=== PATIENT | male | born 1960 | race Caucasian/White ===

== ENCOUNTER 2018-04-25 09:53 | Emergency (ER) | payer BC, OTHER ==
[2018-04-25 11:32] LABS: Appearance,Urine Clear (Clear); Bilirubin,Urine Negative (Negative); Blood,Urine Negative (Negative); Color,Urine Yellow; Glucose,Urine (UA) Negative (Negative); Ketones,Urine Negative (Negative); Leukocyte Esterase,Urine Negative (Negative); Nitrite,Urine Negative (Negative); PH, Urine 5.5 (5.0-8.0); Protein,Urine Negative (Negative); Specific Gravity,Urine 1.017 (1.001-1.035); Urobilinogen,Urine <2.0 mg/dL (<2.0)
--- NOTE | 2018-04-25 11:33 | US ---
EXAMINATION TYPE: US groin RT DATE OF EXAM: 04/25/2018 COMPARISON: NONE CLINICAL HISTORY: Patient has pain from right hip extending through right groin and right testicle. Targeted right groin ultrasound was performed. No ultrasound evidence of right groin hernia. IMPRESSION: No sonographic evidence of right groin hernia.
--- NOTE | 2018-04-25 11:36 | US ---
EXAMINATION TYPE: US scrotum with doppler. Grayscale and color Doppler Duplex imaging performed of t baudilio scrotum. DATE OF EXAM: 04/25/2018 COMPARISON: NONE CLINICAL HISTORY: Pain/pressure from right hip, right groin extending into right testicle EXAM MEASUREMENTS: TESTICLES: Right Testicle: 5.1 x 2.4 x 3.5 cm Left Testicle: 4.5 x 2.7 x 3.3 cm EPIDIDYMIS HEAD: Right Epididymis: 1.0 cm Left Epididymis: 0.9 cm Doppler performed to assess for testicular vascularity; good bilateral color flow and waveforms are s een. There is no evidence of testicular torsion. Presence of hydroceles: Right measuring 4.2 x 1.4 x 2.9cm, Left with internal echos measuring 2.5 x 1.9 x 2.8cm Presence of varicoceles: no IMPRESSION: Moderate right and small left hydroceles appearing minimally complex. No current evidence of testicular torsion at the time of examination.
--- NOTE | 2018-04-25 11:56 | XR ---
EXAMINATION TYPE: XR Hip Limited RT DATE OF EXAM: 04/25/2018 CLINICAL HISTORY: Right hip pain TECHNIQUE: Single view of the right hip was obtained. COMPARISON: None. FINDINGS: There is no acute fracture/dislocation evident in the right hip. The joint space in the r ight hip appears within normal limits. Subtle subchondral cyst is seen of the superior acetabulum wit h slight medial joint space narrowing. The overlying soft tissue appears unremarkable. IMPRESSION: There is no acute fracture or dislocation in the right hip. Mild right femoral acetabula r arthropathy.
[2018-04-25] MEDS ORDERED: KETOROLAC 30 MG/ML 1 ML VIAL IM STA (13:10)
--- NOTE | 2018-04-25 13:10 | ED ---
General Adult HPI - General Chief complaint: Abdominal Pain Stated complaint: Hernia Time Seen by Provider: 04/25/18 10:06 Source: patient, RN notes reviewed Mode of arrival: ambulatory Limitations: no limitations - History of Present Illness Initial comments: 58-year-old male presents to the emergency department for chief complaint of right greater than testicular pain times one month. Patient states this pain extends from the hip down into the right testicle. He states it is now painful when he walks. He denies any abdominal pain. He denies any nausea or vomiting. Patient denies any dysuria. Patient denies any concern for sexually transmitted diseases. Patient denies testicular tenderness. He denies fevers or chills. He states he is concerned for a hernia as he has groin pain. He has never had a hernia before.Patient has no other complaints at this time including shortness of breath, chest pain, abdominal pain, nausea or vomiting, headache, or visual changes. - Related Data Home Medications Medication Instructions Recorded Confirmed Multivitamin,Therapeutic [Thera] 1 tab PO DAILY 04/25/18 04/25/18 Allergies Allergy/AdvReac Type Severity Reaction Status Date / Time No Known Allergies Allergy Verified 04/25/18 10:29 Review of Systems ROS Statement: Those systems with pertinent positive or pertinent negative responses have been documented in the HPI. ROS Other: All systems not noted in ROS Statement are negative. Past Medical History Past Medical History: No Reported History History of Any Multi-Drug Resistant Organisms: None Reported Additional Past Surgical History / Comment(s): CYST REMOVED FROM TAILBONE X2 Past Anesthesia/Blood Transfusion Reactions: No Reported Reaction Past Psychological History: No Psychological Hx Reported Smoking Status: Former smoker Past Alcohol Use History: Occasional Past Drug Use History: None Reported General Exam Limitations: no limitations General appearance: alert, in no apparent distress Head exam: Present: atraumatic, normocephalic, normal inspection Eye exam: Present: normal appearance, PERRL, EOMI. Absent: scleral icterus, conjunctival injection, periorbital swelling ENT exam: Present: normal exam, mucous membranes moist Neck exam: Present: normal inspection, full ROM. Absent: tenderness, meningismus, lymphadenopathy Respiratory exam: Present: normal lung sounds bilaterally. Absent: respiratory distress, wheezes, rales, rhonchi, stridor Cardiovascular Exam: Present: regular rate, normal rhythm, normal heart sounds. Absent: bradycardia, tachycardia, irregular rhythm GI/Abdominal exam: Present: soft, normal bowel sounds. Absent: distended, tenderness (No tenderness noted in the abdomen including the right lower quadrant. No tenderness noted in the groin.), guarding, rebound, rigid exam: Present: other (Sheila Mei RN present for exam). Absent: testicular tenderness (No tenderness noted of the testicles bilaterally), scrotal swelling , vertical testicular lie Neurological exam: Present: alert, oriented X3, CN II-XII intact Psychiatric exam: Present: normal affect, normal mood Course Vital Signs 04/25/18 04/25/18 09:57 13:20 Temperature 97.5 F L 97.8 F Pulse Rate 68 56 L Respiratory 20 18 Rate Blood Pressure 125/80 123/80 O2 Sat by Pulse 99 98 Oximetry Medical Decision Making - Medical Decision Making 58-year-old male presents to the emergency department for a chief complaint of groin pain that radiates to the hip and testicle. This has been ongoing for 1 month. It is now causing pain with walking. No abdominal tenderness. No tenderness of the great. No tenderness of the testicle. Patient doesn't have tenderness with movement of the hip. He has full motion of the right hip including flexion and extension and abduction and with external rotation. X- ray of the right hip showed no acute fracture or dislocation with mild right femoral acetabular arthropathy. I do not suspect hip causing pain. Ultrasound of the groin shows no sonographic evidence of a right groin hernia. Scrotal ultrasound shows moderate right and small left hydrocele that appeared minimally complex. No torsion. Urine is negative. No fevers or chills. They do not suspect infection. At this time patient will follow up with urology. Discussed to see the next week. Discussed returning here if he has any worsening symptoms or fevers. - Lab Data Lab Results 04/25/18 Range/Units 11:19 Urine Color Yellow Urine Appearance Clear (Clear) Urine pH 5.5 (5.0-8.0) Ur Specific [place] 1.017 (1.001-1.035) Urine Protein Negative (Negative) Urine Glucose (UA) Negative (Negative) Urine Ketones Negative (Negative) Urine Blood Negative (Negative) Urine Nitrite Negative (Negative) Urine Bilirubin Negative (Negative) Urine Urobilinogen <2.0 (<2.0) mg/dL Ur Leukocyte Esterase Negative (Negative) Disposition Clinical Impression: Hydrocele, bilateral Disposition: HOME SELF-CARE Condition: Good Instructions (If sedation given, give patient instructions): Hydrocele (ED), Testicle Pain (ED) Additional Instructions: Please follow up with urology in 1-2 days. Take motrin and tylenol for pain. If you start having worsening symptoms such as worsening pain or fevers return here to the emergency department. Return if you have any other symptoms or concerns. Is patient prescribed a controlled substance at d/c from ED?: No Referrals: Nicho Maria DO [Primary Care Provider] - 1-2 days Geo Medeiros MD [STAFF PHYSICIAN] - 1-2 days Time of Disposition: 13:09
[2018-04-25 13:22] VITALS: BP 123/80; PULSE 56; RESP 18; TEMP 97.8
[2018-04-26 13:30] LABS: C. trachomatis,PCR Negative (Neg,Equiv); Chlamydia trachomatis Source Urine; N. gonorrhoeae,PCR Negative (Neg,Equiv); Neisseria Source Urine
== END 2018-04-25 13:22 | disposition home or self-care (01) ==
LOC: EC 09:53
DX: N43.3 Hydrocele, unspecified (principal); M12.851 Other specific arthropathies, not elsewhere classified, right hip; R10.31 Right lower quadrant pain; M25.551 Pain in right hip; N50.811 Right testicular pain; N50.812 Left testicular pain; Z87.891 Personal history of nicotine dependence
CPT/HCPCS: 81003; 87491; 87591; 73501; 93975; 76870; 76882; 99284; 96372; J1885

== ENCOUNTER 2023-01-21 06:10 | Day surgery (SDC) | payer BC, OTHER ==
[2023-01-17 10:54] VITALS: BMI 23.3
[~2023-01-21 06:10] MED LIST: ACETAMINOPHEN TAB 500 MG TAB PO PRN; HEPARIN SODIUM,PORCINE/PF 5,000 UNIT/0.5 ML SYRINGE SQ PRN; Pre Op ABX Message 1 EACH MISC MISCELLANE ONE
[2023-01-21] MEDS ORDERED: SCOPOLAMINE 1 MG/72 HR PATCH TRANSDERM ONE (06:45)
[2023-01-21] MEDS ORDERED: LACTATED RINGERS 1,000 ML IV SCH (06:45)
[2023-01-21] MEDS ORDERED: ONDANSETRON 4 MG/2 ML VIAL IVP ONE (06:45)
[2023-01-21] MEDS ORDERED: DEXAMETHASONE SOD PHOSPHATE 4 MG/ML 1 ML VIAL IV ONE (06:45)
[2023-01-21] MEDS ORDERED: HYDROmorphone 0.5 MG/0.5 ML SYRINGE IVP PRN (07:00)
[2023-01-21] MEDS ORDERED: MIDAZOLAM 2 MG/2 ML VIAL IV PRN (07:00)
[2023-01-21] MEDS ORDERED: LIDOCAINE 1% INJ 10MG/ML (20 ML MDV) ONE (07:22)
[2023-01-21] MEDS ORDERED: KETOROLAC 15 MG/ML 1 ML VIAL ONE (07:22)
[2023-01-21] MEDS ORDERED: fentaNYL (PF) 50 MCG/ML 2 ML AMP ONE (07:22)
[2023-01-21] MEDS ORDERED: ceFAZolin 1,000 MG VIAL ONE (07:22)
[2023-01-21] MEDS ORDERED: MIDAZOLAM 2 MG/2 ML VIAL ONE (07:22)
[2023-01-21] MEDS ORDERED: ROCURONIUM 10 MG/ML (5 ML VIAL) IV ONE (07:22)
[2023-01-21] MEDS ORDERED: PROPOFOL 10 MG/ML 20 ML VIAL IV ONE (07:22)
[2023-01-21] MEDS ORDERED: SUCCINYLCHOLINE CHLORIDE 200 MG/10 ML VIAL IV ONE (07:22)
[2023-01-21] MEDS ORDERED: ceFAZolin 1,000 MG VIAL IVPB ONE (07:27)
--- NOTE | 2023-01-21 07:27 | P.GSHP ---
History of Present Illness H&P Date: 01/21/23 Chief Complaint: Left buttock lipoma 62-year-old male seen in the office in early December. Patient with a recurrent fatty mass left buttock region. Has been increasing in size. Mild soreness. No drainage. Past Medical History Past Medical History: No Reported History Additional Past Medical History / Comment(s): LIPOMA TO LT BUTTOCK History of Any Multi-Drug Resistant Organisms: None Reported Additional Past Surgical History / Comment(s): CYST REMOVED FROM TAILBONE X2. COLONOSCOPY Past Anesthesia/Blood Transfusion Reactions: No Reported Reaction Smoking Status: Never smoker - Past Family History Father Family Medical History: Cancer Medications and Allergies Home Medications Medication Instructions Recorded Confirmed Type Multivitamin,Therapeutic [Thera] 1 tab PO DAILY 04/25/18 01/17/23 History Allergies Allergy/AdvReac Type Severity Reaction Status Date / Time No Known Allergies Allergy Verified 01/17/23 10:21 Surgical - Exam Vital Signs Temp Pulse Resp BP Pulse Ox 96.9 F L 70 16 141/80 96 01/21/23 06:49 01/21/23 06:49 01/21/23 06:49 01/21/23 06:49 01/21/23 06:49 Physical exam: General: Well-developed, well-nourished HEENT: Normocephalic, sclerae nonicteric Abdomen: Nontender, nondistended Extremities: No edema, 4 x 5 cm lipomatous mass medial aspect left buttock. Skin protruding there, previous scar noted, no drainage or fluctuance Neuro: Alert and oriented Assessment and Plan (1) Mass of buttock Narrative/Plan: 62-year-old male with mass left buttock. We'll proceed with surgical excision. Risks of bleeding, infection, scarring, numbness, recurrence reviewed. Patient understands and wishes to proceed. Current Visit: Yes Status: Acute Code(s): R22.2 - LOCALIZED SWELLING, MASS AND LUMP, TRUNK SNOMED Code(s): 0327898204
[2023-01-21] MEDS ORDERED: BUPIVACAINE (PF) 0.25% 30 ML VIAL SQ ONE (07:53)
--- NOTE | 2023-01-21 08:46 | P.OP ---
Date of Procedure: 01/21/23 Procedure(s) Performed: PREOPERATIVE DIAGNOSIS: Left buttock lipoma POSTOPERATIVE DIAGNOSIS: Same PROCEDURE: Excision left buttock lipoma with intermediate closure SURGEON: Charis GEORGE: Lashaun Leal ANESTHESIA: Gen. COMPLICATIONS: None OPERATIVE PROCEDURE: Patient placed in the prone jackknife position after general anesthesia achieved. An elliptical incision was made around the extruding skin left of midline as the lipomatous mass seemed to involve this portion of skin. Subcutaneous tissues were then divided using both blunt dissection and cautery. Lipomatous mass removed in 2 separate pieces. Total size of mass approximately 4 x 5 cm. Some scar tissue from previous surgical excisions was identified during the dissection. Saphenous tissues then closed using interrupted 2-0 Vicryl and 3-0 Vicryl sutures. Skin closed using a running 4-0 Monocryl subcuticular suture. Skin glue and sterile dressings applied. DISPOSITION: Stable to recovery room
[2023-01-21] MEDS ORDERED: NALOXONE 0.4 MG/ML 1 ML VIAL IV PRN (08:47)
[2023-01-21 08:58] VITALS: TEMP 97
[2023-01-21 09:31] VITALS: RESP 16
[2023-01-21 10:35] VITALS: BP 111/75; PULSE 58
== END 2023-01-21 10:35 | disposition home or self-care (01) ==
LOC: OR 06:10
PROVIDERS: ATTEND Surgery
DX: D17.79 Benign lipomatous neoplasm of other sites (principal); R22.2 Localized swelling, mass and lump, trunk
CPT/HCPCS: 21931; J2250; J0330; J1100; J2405; J0690; J2001; J3010; J1885; J2704; J1644; J0665; 88304

== ENCOUNTER → 2023-06-14 | Outpatient (CLI) | payer BC ==
--- NOTE | 2023-06-14 15:35 | US ---
EXAMINATION TYPE: US kidneys/renal and bladder DATE OF EXAM: 06/14/2023 COMPARISON: NONE CLINICAL INDICATION: Male, 63 years old with history of R31.21 HEMATURIA; Microscopic hematuria. 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 Horse shoe kidney with connec tion at lower RK to upper LK, limited visualization. Left Kidney: Anechoic lesion at hilum, possible dilated renal pelvis Bladder: Distended, anechoic Bilateral Jets seen No nephrolithiasis is seen. No masses are identified. The urinary bladder is anechoic. Bilateral u reteral jets are seen. IMPRESSION: 1. 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 Parapelvic cysts noted bilaterally .
== END | disposition home or self-care (01) ==
LOC: RADUSWWP 14:17
PROVIDERS: ATTEND Family Medicine
DX: Q63.1 Lobulated, fused and horseshoe kidney (principal); N28.1 Cyst of kidney, acquired; R31.21 Asymptomatic microscopic hematuria
CPT/HCPCS: 76770